=== PATIENT | male | born 1940 | race Two or more races ===

== ENCOUNTER 2022-04-14 15:55 | Emergency (ER) | payer OTHER ==
[~2022-04-14] VITALS: Ht 177.8 cm; Wt 96.0 kg
[2022-04-14 19:25] VITALS: BP 140/66
[2022-04-14] MEDS ORDERED: ACET-1080 PO (20:11)
[2022-04-14] MEDS ORDERED: CYCL-837 PO (20:11)
[2022-04-14] MEDS ORDERED: CEPH-510 PO (20:11)
[2022-04-14] MEDS ORDERED: traMADol HCL 50 MG TAB PO ONE (20:15)
== END 2022-04-14 20:52 | disposition home or self-care (01) ==
LOC: ER 15:55
DX: S93.601A Unspecified sprain of right foot, initial encounter (principal); L03.115 Cellulitis of right lower limb; I10 Essential (primary) hypertension; Z86.73 Personal history of transient ischemic attack (TIA), and cerebral infarction without residual deficits; Z79.899 Other long term (current) drug therapy; Z88.8 Allergy status to other drugs, medicaments and biological substances; W23.0XXA Caught, crushed, jammed, or pinched between moving objects, initial encounter; Y93.89 Activity, other specified; Y92.89 Other specified places as the place of occurrence of the external cause; Y99.8 Other external cause status
CPT/HCPCS: 73630